=== PATIENT | female | born 1980 | race American Indian/Alaskan Native ===

== ENCOUNTER 2018-09-18 19:20 | Inpatient (IN) | payer MEDICAID ==
[2018-09-18] MEDS ORDERED: PITOCin/NS 20 UNIT/1000ML DRIP 20,000 MILLIUNITS/1,000 ML BAG IV ONE (21:40)
[2018-09-18] MEDS ORDERED: XYLOCAINE 2% INFILTRATI ONE (21:41)
[2018-09-18] MEDS ORDERED: DULCOLAX PR PRN (22:04)
[2018-09-18] MEDS ORDERED: MILK OF MAGNESIA PO PRN (22:04)
[2018-09-18] MEDS ORDERED: TYLENOL PO PRN (22:04)
[2018-09-18] MEDS ORDERED: BENADRYL PO PRN (22:04)
[2018-09-18] MEDS ORDERED: ZOFRAN IV PRN (22:04)
[2018-09-18] MEDS ORDERED: PHENERGAN PO PRN (22:04)
[2018-09-18] MEDS ORDERED: PHENERGAN PR PRN (22:04)
[2018-09-18] MEDS ORDERED: PERCOCET 5/325 PO PRN (22:04)
[2018-09-18] MEDS ORDERED: LANSINOH TP PRN (22:04)
[2018-09-18] MEDS ORDERED: NORCO 5/325 PO PRN (22:04)
[2018-09-18] MEDS ORDERED: TUCKS PAD TP PRN (22:04)
[2018-09-18] MEDS ORDERED: ANUCORT-HC PR PRN (22:04)
--- NOTE | 2018-09-18 22:20 | History and Physical Report ---
History of Present Illness Date of examination: 09/18/18 Date of admission: 09/18/18 21:30 Chief complaint: contractions History of present illness: This is a 37 yo at 40+2 weeks. She is a patient of [facility]. Past History Past Medical History: no pertinent history Past Surgical History: no surgical history Family/Genetic History: none Social history: single. denies: smoking, alcohol abuse, prescription drug abuse - Obstetrical History Expected Date of Delivery: 09/16/18 Actual Gestation: 40 Week(s) 2 Day(s) : 10 Para: 6 Hx # Term Pregnancies: 6 Number of Pregnancies: 0 Spontaneous Abortions: 3 Induced : 0 Number of Living Children: 6 Medications and Allergies Allergies Allergy/AdvReac Type Severity Reaction Status Date / Time No Known Allergies Allergy Verified 12/24/14 12:25 Home Medications Medication Instructions Recorded Confirmed Last Taken Type Ferrous Sulfate 325 mg PO BID #60 tablet. 09/18/18 Unknown Rx Ibuprofen [Motrin] 600 mg PO Q8H PRN #30 tablet 09/18/18 Unknown Rx Pnv No.95/Ferrous Fum/Folic AC 1 each PO QDAY 09/18/18 09/18/18 09/16/18 History [ Vitamin Tablet] oxyCODONE /ACETAMINOPHEN [Percocet 1 tab PO Q6HR PRN #30 tablet 09/18/18 U nknown Rx 5/325] Active Meds: Active Medications Acetaminophen (Tylenol) 650 mg PO Q4H PRN PRN Reason: Pain MILD(1-3)/Fever >100.5/ZAIDI Acetaminophen/Hydrocodone Bitart ([place] 5/325) 2 each PO Q6H PRN PRN Reason: Pain, Moderate (4-6) Bisacodyl (Dulcolax) 10 mg MT BID PRN PRN Reason: Constipation Diphenhydramine HCl (Benadryl) 25 mg PO Q6H PRN PRN Reason: Itching Diphtheria/Tetanus/Acell Pertussis (Boostrix) 0.5 ml IM .ONCE ONE Stop: 09/19/18 22:05 Docusate Sodium (Colace) 100 mg PO BID YAHAIRA Ferrous Sulfate (Feosol) 325 mg PO BID YAHAIRA Hydrocortisone Acetate (Anucort-Hc) 25 mg MT BID PRN PRN Reason: Hemorrhoids Oxytocin/Sodium Chloride (Pitocin/Ns 20 Unit/1000ml Drip) 20 units in 1,000 mls @ 250 mls/hr IV DIRECT YAHAIRA Ibuprofen (Motrin) 600 mg PO Q6H YAHAIRA Magnesium Hydroxide (Milk Of Magnesia) 30 ml PO HS PRN PRN Reason: Constipation Measles/Mumps/Rubella Vaccine Live (M-M-R Ii Vaccine) 0.5 ml SUB-Q .ONCE ONE Stop: 09/19/18 22:05 Multi-Ingredient Ointment (Lansinoh) 1 applic TP PRN PRN PRN Reason: Sore Nipples Multivitamins/Iron/Calcium ( Vitamin) 1 each PO QDAY YAHAIRA Ondansetron HCl (Zofran) 4 mg IV Q8H PRN PRN Reason: Nausea And Vomiting Oxycodone/Acetaminophen (Percocet 5/325) 1 tab PO Q6H PRN PRN Reason: Pain, Moderate (4-6) Promethazine HCl (Phenergan) 25 mg MT Q6H PRN PRN Reason: Nausea And Vomiting Promethazine HCl (Phenergan) 25 mg PO Q6H PRN PRN Reason: Nausea And Vomiting Senna/Docusate Sodium (Senokot S) 2 tab PO Q12H [facility] Sodium Chloride (Sodium Chloride Flush Syringe 10 Ml) 10 ml IV PRN NR Witch Susanne/Glycerin (Tucks Pad) 1 each TP PRN PRN PRN Reason: Hemorrhoid/cleansing/soothing Review of Systems All systems: negative - Vital Signs Vital signs: Vital Signs Temp Resp 98.4 F 20 09/18/18 19:48 09/18/18 19:48 Temp Pulse Resp BP Pulse Ox 98.4 F 81 20 112/67 09/18/18 19:48 09/18/18 21:44 09/18/18 19:48 09/18/18 21:44 - Physical Exam Breasts: Positive: normal Cardiovascular: Regular rate, Normal S1 Lungs: Positive: Clear to auscultation, Normal air movement Abdomen: Positive: normal appearance, soft, normal bowel sounds. Negative: distention, tenderness, guarding Genitourinary (Female): Positive: normal external genitalia, normal perenium Vulva: both: normal Vagina: Positive: normal moisture Uterus: Positive: normal size, normal contour Anus/Rectum: Positive: normal perianal skin Extremities: Positive: normal Deep Tendon Reflex Grade: Normal +2 - Obstetrical FHR: category 1 Cervical Dilatation: 7 Cervical Effacement Percentage: 90 station: -2 Uterine Contraction Pattern: Regular Uterine Tone Measurement Phase: Contraction Uterine Contraction Intensity: Strong/Firm Results All other labs normal. Assessment and Plan A/P IUP 40+2 weeks active labor expectant mgt
--- NOTE | 2018-09-18 22:28 | Procedure Note ---
OB Delivery Note - Delivery Date of Delivery: 09/18/18 Surgeon: ANNETTA PARSONS Estimated blood loss: 300cc - Vaginal Delivery presentation: vertex Delivery position: OA Intrapartum events: precipitous labor- <3hr Delivery induction: none Delivery monitor: external FHT, external uterine Route of delivery: Delivery placenta: spontaneous Delivery cord: 3 umbilical vessels Episiotomy: none Delivery laceration: none Anesthesia: none Delivery comments: Patient was seen in triage and noted to be 7 cm. She was admitted and delivered in route to room from triage. The baby was born at 2134. Upon arriving in the room the placenta still attached. the cord was clamped and cut and the placenta delivered spontaneously intact. The weight of the viable female was 6 pounds 9 oz. Apgars 8 and 9. EBL 300 cc. Patient tolerated and bonded with baby breast feeding. - Infant A at 1 minute: 8 at 5 minutes: 9 Gender: Female (6 pounds and 9 oz)
[2018-09-18] MEDS ORDERED: PITOCin/NS 20 UNIT/1000ML DRIP 20 UNITS/1,000 ML BAG IV SCH (23:00)
[2018-09-18] MEDS ORDERED: SODIUM CHLORIDE FLUSH SYRINGE 10 ML IV NR (23:00)
[2018-09-19] MEDS ORDERED: SENOKOT S PO SCH
[2018-09-19] MEDS: IBUPROFEN PO SCH ×4 (01:43→18:00)
[2018-09-19 02:36] LABS: Hematocrit 37.5 % (30.3-42.9)
[2018-09-19] MEDS ORDERED: BOOSTRIX IM ONE (06:00)
[2018-09-19] MEDS ORDERED: M-M-R II VACCINE SUB-Q ONE (06:00)
--- NOTE | 2018-09-19 08:39 | Progress Note ---
Assessment and Plan - Patient Problems (1) Normal spontaneous vaginal delivery Current Visit: No Status: Acute Plan to address problem: routine care Subjective - Subjective Date of service: 09/19/18 Interval history: Patient without complaints. Pain well controlled. Patient reports: appetite normal, voiding normally, pain well controlled [place]: doing well Objective - Vital Signs Latest vital signs: Vital Signs Temp Pulse Resp BP BP Pulse Ox 09/19/18 04:45 98.1 F 77 20 101/63 96 09/19/18 01:03 98.4 F 75 20 108/69 98 09/19/18 00:05 80 118/65 09/18/18 23:50 81 117/60 09/18/18 23:36 84 140/66 09/18/18 23:20 88 111/63 09/18/18 23:05 116/65 09/18/18 22:59 97.2 F L 85 18 116/61 09/18/18 22:50 85 116/61 09/18/18 22:35 79 123/60 09/18/18 22:20 69 117/70 09/18/18 21:44 81 112/67 09/18/18 20:03 85 120/78 09/18/18 19:48 98.4 F 20 Intake and Output 09/18/18 09/19/18 09/19/18 22:59 06:59 14:59 Intake Total 360 Output Total 600 Balance -240 Intake: Oral 360 Output: Urine 600 Void 600 Other: Total, Intake Amount 120 Total, Output Amount 600 Weight 74.389 kg Estimated Blood Loss 300 - Exam Abdomen: Present: normal appearance Uterus: Present: normal, firm
[2018-09-19] MEDS: FEOSOL PO SCH (12:28)
[2018-09-19] MEDS: PRENATAL VITAMIN PO SCH (12:28)
[2018-09-19 17:24] VITALS: BP 105/71
[2018-09-20] MEDS: COLACE PO SCH ×2 (01:47→10:11)
[2018-09-20] MEDS: FEOSOL PO SCH ×2 (01:48→10:10)
[2018-09-20] MEDS: IBUPROFEN PO SCH ×3 (01:54→17:26)
--- NOTE | 2018-09-20 08:27 | Progress Note ---
Assessment and Plan A/P PPD2 doing well VSS undecided controll d/c home with f/u in 4 weeks Subjective - Subjective Date of service: 09/20/18 Principal diagnosis: s/p Interval history: This is a 37 yo at 40+2 weeks. She is a patient of [facility]. Patient reports: appetite normal, voiding normally, pain well controlled, flatus, ambulating normally Gantt: doing well Objective - Vital Signs Latest vital signs: Vital Signs Temp Pulse Resp BP BP Pulse Ox 09/20/18 00:10 97.6 F 82 18 120/73 98 09/19/18 17:22 98.0 F 82 18 105/71 97 09/19/18 09:24 98.0 F 77 18 95/57 95 Intake and Output 09/19/18 09/20/18 09/20/18 23:59 07:59 15:59 Intake Total 1080 480 Output Total 4 Balance 1076 480 Intake: Oral 240 480 Intake, Free Water 840 Output: Urine 4 Void 4 Other: Total, Intake Amount 240 240 Total, Output Amount 4 # Voids Void 1 1 - Exam Breasts: Present: normal Cardiovascular: Present: Regular rate, Normal S1 Lungs: Present: Clear to auscultation, Normal air movement Abdomen: Present: normal appearance, soft, normal bowel sounds. Absent: di stention, tenderness, guarding Uterus: Present: normal, firm, fundal height below umbilicus. Absent: bogginess Extremities: Present: normal Deep Tendon Reflex Grade: Normal +2
--- NOTE | 2018-09-20 08:28 | Discharge Summary ---
Providers - Providers Date of Admission: 09/18/18 21:30 Date of discharge: 09/20/18 Attending physician: ANNETTA PARSONS MD 09/19/18 18:19 Consult to Case Management [CONS] Routine Services Needed at Discharge: Data Coder Operator Notified:: yes Phone number called:: [phone] Was contact made?: Yes If yes, spoke with:: jd Time called:: 18:20 Primary care physician: ANNETTA PARSONS MD Hospitalization Reason for admission: active labor Delivery: Episiotomy: none Laceration: none Incision: normal, dry, intact Other procedures: none Discharge diagnosis: IUP at term delivered baby: female Hospital course: patietn delivered a viable female . doing well. routine PP care. D/C home in stable condition to f/u in 4 weeks Condition at discharge: Good Disposition: DC-01 TO HOME OR SELFCARE Plan - Discharge Medications Prescriptions: Ferrous Sulfate 325 mg PO BID #60 tablet. Ibuprofen [Motrin] 600 mg PO Q8H PRN #30 tablet PRN Reason: Pain oxyCODONE /ACETAMINOPHEN [Percocet 5/325] 1 tab PO Q6HR PRN #30 tablet PRN Reason: Pain - Provider Discharge Summary Additional instructions: [] Smoking cessation referral if applicable(refer to patient education folder for contact #) [] Refer to [facility] Booklet Call your doctor immediately for: * Fever > 100.5 * Heavy vaginal bleeding ( >1 pad per hour) * Severe persistent headache * Shortness of breath * Reddened, hot, painful area to leg or breast * Drainage or odor from incision. * Keep incision clean and dry at all times and follow doctor's instructions regarding bathing/showering - Follow up plan Follow up: ANNETTA PARSONS MD [Primary Care Provider] - 7 Days
[2018-09-20] MEDS: PRENATAL VITAMIN PO SCH (10:10)
== END 2018-09-20 18:30 | disposition home or self-care (01) | DRG 775 ==
LOC: TRG 19:20 → LD 21:30 → OB 09-19 01:07
PROVIDERS: ADMIT Obstetrics & Gynecology; ATTEND Obstetrics & Gynecology
PROC: 10E0XZZ Delivery of Products of Conception, External Approach (ICD-10-PCS; principal; 2018-09-18)
PROC: 3E0234Z Introduction of Serum, Toxoid and Vaccine into Muscle, Percutaneous Approach (ICD-10-PCS; 2018-09-19)
DX: O62.3 Precipitate labor (principal); Z3A.40 40 weeks gestation of pregnancy; Z37.0 Single live birth; Z23 Encounter for immunization
CPT/HCPCS: 36415; 85014; 85018; 86850; 86900; 86901; G0378; J2590

== ENCOUNTER 2021-05-24 16:53 | Inpatient (IN) | payer MEDICAID ==
[2021-05-24 18:34] LABS: Eosinophils % (Auto) 0.7 % (0.0-4.3); Hematocrit 33.7 % (30.3-42.9); Hemoglobin 11.5 gm/dl (10.1-14.3); Lymphocytes # (Auto) 1.8 K/mm3 (1.2-5.4); Lymphocytes % (Auto) 25.7 % (13.4-35.0); Mean Corpuscular HGB Conc 34 % (30-34); Mean Corpuscular Volume 94 fl (79-97); Monocytes # (Auto) 0.6 K/mm3 (0.0-0.8); Monocytes % (Auto) 9.3 % (0.0-7.3); Platelet Count 160 K/mm3 (140-440); Red Blood Count 3.58 M/mm3 (3.65-5.03); Red Cell Distribution Width 14.1 % (13.2-15.2)
--- NOTE | 2021-05-24 21:53 | History and Physical Report ---
History of Present Illness Date of examination: 05/24/21 Date of admission: 05/24/21 16:56 Chief complaint: induction of labor History of present illness: 40-year-old G 11 P7128 at 41+0 weeks who presents for induction of labor secondary to postterm . The patient's course is complicated by late entry of care at 29 weeks estimated gestational age, advanced maternal age, grand multiparity, polyhydramnios. Patient is GBS negative Past History Past Medical History: no pertinent history Past Surgical History: no surgical history Social history: single - Obstetrical History Expected Date of Delivery: 05/17/21 Actual Gestation: 41 Week(s) 0 Day(s) : 11 Para: 8 Hx # Term Pregnancies: 7 Number of Pregnancies: 1 Spontaneous Abortions: 2 Induced : 0 Number of Living Children: 8 Medications and Allergies Allergies Allergy/AdvReac Type Severity Reaction Status Date / Time No Known Allergies Allergy Verified 05/24/21 17:39 Home Medications Medication Instructions Recorded Confirmed Last Taken Type Pnv No.95/Ferrous Fum/Folic AC 1 each PO QDAY 09/18/18 05/24/21 05/22/21 History [ Vitamin Tablet] Review of Systems All systems: negative Genitourinary: no leakage of fluid - Vital Signs Vital signs: Vital Signs Pulse BP Pulse Ox 76 110/68 100 05/24/21 17:38 05/24/21 17:38 05/24/21 17:38 Temp Pulse Resp BP Pulse Ox 98.5 F 79 12 100/64 100 05/24/21 18:58 05/24/21 21:43 05/24/21 18:58 05/24/21 19:02 05/24/21 21:43 - Physical Exam Breasts: Positive: deferred Cardiovascular: Regular rate Lungs: Positive: Clear to auscultation Abdomen: Positive: normal appearance Results Result Diagrams: 05/24/21 17:49 Abnormal lab results 05/24/21 Range/Units 17:49 RBC 3.58 L (3.65-5.03) M/mm3 [place] % (Auto) 9.3 H (0.0-7.3) % All other labs normal. Assessment and Plan - Patient Problems (1) Grand multiparity Current Visit: Yes Status: Acute Plan to address problem: Admit for induction of labor (2) Insufficient care Current Visit: Yes Status: Acute (3) Post-dates Current Visit: No Status: Acute
[2021-05-25] MEDS ORDERED: ePHEDrine SULFATE 50 MG/1 ML INJ IV PRN (07:44)
[2021-05-25] MEDS ORDERED: miSOPROStol 200 MCG TAB PR PRN (07:44)
[2021-05-25] MEDS ORDERED: CARBOPROST TROMETHAMINE 250 MCG/1 ML INJ IM PRN (07:44)
[2021-05-25] MEDS ORDERED: LIDOCAINE (2%) 20 MG/1 ML VIAL 20 ML MDV INFILTRATI NR (07:44)
[2021-05-25] MEDS ORDERED: METHYLERGONOVINE MALEATE 0.2 MG/ML VIAL IM PRN (07:44)
[2021-05-25] MEDS ORDERED: OXYTOCIN DRIP 30 UNITS/500 ML BAG IV SCH ×3 (08:00→14:46)
[2021-05-25] MEDS ORDERED: ACETAMINOPHEN 325 MG TAB PO PRN (08:00)
[2021-05-25] MEDS ORDERED: TERBUTALINE 1 MG/1 ML INJ SUB-Q PRN (08:00)
[2021-05-25] MEDS ORDERED: LACTATED RINGERS 1,000 ML IV SCH (08:00)
[2021-05-25] MEDS ORDERED: OXYTOCIN 10 UNIT/1 ML INJ IM PRN (08:00)
[2021-05-25] MEDS ORDERED: BUTORPHANOL 2 MG/1 ML INJ IV PRN (08:00)
[2021-05-25] MEDS ORDERED: fentaNYL 100 MCG/2 ML INJ IV PRN (08:30)
[2021-05-25] MEDS ORDERED: ONDANSETRON 4 MG/2 ML INJ IV PRN ×2 (09:00→14:46)
[2021-05-25] MEDS ORDERED: NalbUPHINE 10 MG/1 ML INJ IV PRN (09:00)
[2021-05-25] MEDS ORDERED: LOPERAMIDE 2 MG CAP PO PRN (09:00)
--- NOTE | 2021-05-25 10:24 | Event Note ---
Date: 05/25/21 Pt comfortable, eber minimally. SVE: /-3/cephalic. AROM-clear fluid. Continue pitocin augmentation. Closely monitor maternal and status.
[2021-05-25 10:26] LABS: Hematocrit 32.5 % (30.3-42.9); Hemoglobin 11.3 gm/dl (10.1-14.3); Mean Corpuscular HGB Conc 35 % (30-34); Mean Corpuscular Volume 92 fl (79-97); Platelet Count 151 K/mm3 (140-440); Red Blood Count 3.53 M/mm3 (3.65-5.03)
--- NOTE | 2021-05-25 12:55 | Procedure Note ---
OB Delivery Note - Delivery Date of Delivery: 05/25/21 Surgeon: TORIE ESTEVEZ Estimated blood loss: 200cc - Vaginal Delivery presentation: vertex Delivery position: OA Intrapartum events: PROM->1hr before delivery Delivery induction: oxytocin Delivery augmentation: rupture of membranes, pitocin Delivery monitor: external FHT, external uterine Route of delivery: Delivery placenta: spontaneous Episiotomy: none Delivery laceration: 1st degree (well approximating, hemostatic without repair ) Anesthesia: none - Infant A at 1 minute: 8 at 5 minutes: 9 Infant Gender: Male (3510g (7lb 12oz) @ 1239 pm)
[2021-05-25] MEDS ORDERED: HYDROcodone/ACETAMINOPHEN 5-325 MG TAB PO PRN (14:46)
[2021-05-25] MEDS ORDERED: BENZOCAINE/MENTHOL 20/0.5% TOP SPRAY 56 GM TP PRN (14:46)
[2021-05-25] MEDS ORDERED: diphenhydrAMINE 25 MG CAP PO PRN (14:46)
[2021-05-25] MEDS ORDERED: PROMETHAZINE 25 MG RECT SUPP PR PRN (14:46)
[2021-05-25] MEDS ORDERED: WITCH HAZEL/ GLYCERIN PAD TP PRN (14:46)
[2021-05-25] MEDS ORDERED: PROMETHAZINE 25 MG TAB PO PRN (14:46)
[2021-05-25] MEDS ORDERED: IBUPROFEN 600 MG TAB PO SCH (14:46)
[2021-05-25] MEDS ORDERED: MAGNESIUM HYDROXIDE (MOM) ORAL LIQD UDC PO PRN (14:46)
[2021-05-25] MEDS ORDERED: miSOPROStol 100 MCG TAB PR PRN (14:46)
[2021-05-25] MEDS ORDERED: LANOLIN/ZINC/DIMETHICONE (LANSINOH) 7 GM TP PRN ×2 (14:46)
[2021-05-25] MEDS: IBUPROFEN 800 MG TAB PO SCH ×2 (15:14→22:41)
[2021-05-25] MEDS ORDERED: MINERAL OIL 30 ML ORAL LIQD PO PRN (22:00)
[2021-05-25] MEDS: FERROUS SULFATE 325 MG TAB PO SCH (22:38)
[2021-05-26 00:38] LABS: Hematocrit 35.6 % (30.3-42.9)
[2021-05-26] MEDS: IBUPROFEN 800 MG TAB PO SCH ×4 (06:27→22:31)
--- NOTE | 2021-05-26 08:48 | Discharge Summary ---
Providers - Providers Date of Admission: 05/24/21 16:56 Date of discharge: 05/26/21 Attending physician: NATANAEL CASILLAS 05/25/21 14:46 Consult to Precision Thread Grinder Operator [CONS] Routine Reason For Exam: assistance with , SNS Primary care physician: NATANAEL CASILLAS Hospitalization Reason for admission: induction of labor Delivery: Episiotomy: none Laceration: none Other procedures: none complications: none Discharge diagnosis: IUP at term delivered baby: male Hospital course: 40-year-old G 11 P7128 at 41+0 weeks who presents for induction of labor secondary to postterm . The patient's course is complicated by late entry of care at 29 weeks estimated gestational age, advanced maternal age, grand multiparity, polyhydramnios. Patient is GBS negative. Delivered viable male infant. Condition at discharge: Good Disposition: 01 HOME / SELF CARE / HOMELESS - Discharge Diagnoses (1) Status post normal vaginal delivery Status: Acute Plan - Discharge Medications Prescriptions: Ibuprofen [Motrin 800 MG tab] 800 mg PO Q8HR 7 Days #21 tablet - Provider Discharge Summary Activity: routine, no sex for 6 weeks, no heavy lifting 4 weeks, no strenuous exercise Diet: routine Instructions: routine Additional instructions: [] Smoking cessation referral if applicable(refer to patient education folder for contact #) [] Refer to [facility] Booklet Call your doctor immediately for: * Fever > 100.5 * Heavy vaginal bleeding ( >1 pad per hour) * Severe persistent headache * Shortness of breath * Reddened, hot, painful area to leg or breast * Drainage or odor from incision. * Keep incision clean and dry at all times and follow doctor's instructions regarding bathing/showering - Follow up plan Follow up: NATANAEL CASILLAS MD [Primary Care Provider] - 6 Weeks
[2021-05-26] MEDS ORDERED: MEASLES, MUMPS & RUBELLA 12,500 UNIT/0.5 ML VACCINE SUB-Q ONE (12:55)
[2021-05-26] MEDS ORDERED: TETANUS,DIPH,PERTUSS(ACELL) VACCINE 0.5 ML SYRINGE IM ONE (12:56)
[2021-05-26] MEDS: FERROUS SULFATE 325 MG TAB PO SCH ×2 (17:56→22:32)
[2021-05-27 12:46] VITALS: BP 100/67
== END 2021-05-27 14:30 | disposition home or self-care (01) | DRG 775 ==
LOC: TRG 16:53 → LD 16:56 → OB 05-25 14:42
PROVIDERS: ADMIT Obstetrics & Gynecology; ATTEND Obstetrics & Gynecology
PROC: 10E0XZZ Delivery of Products of Conception, External Approach (ICD-10-PCS; principal; 2021-05-25)
PROC: 3E033VJ Introduction of Other Hormone into Peripheral Vein, Percutaneous Approach (ICD-10-PCS; 2021-05-25)
PROC: 10907ZC Drainage of Amniotic Fluid, Therapeutic from Products of Conception, Via Natural or Artificial Opening (ICD-10-PCS; 2021-05-25)
PROC: 3E0234Z Introduction of Serum, Toxoid and Vaccine into Muscle, Percutaneous Approach (ICD-10-PCS; 2021-05-26)
DX: O48.0 Post-term pregnancy (principal); O42.02 Full-term premature rupture of membranes, onset of labor within 24 hours of rupture; Z3A.41 41 weeks gestation of pregnancy; Z37.0 Single live birth; Z23 Encounter for immunization; O70.0 First degree perineal laceration during delivery; O40.3XX0 Polyhydramnios, third trimester, not applicable or unspecified
CPT/HCPCS: 36415; 85014; 85018; 85025; 85027; 86592; 86850; 86900; 86901; G0378; J2210; J2590; J7120; U0003